=== PATIENT | female | born 1995 | race Caucasian/White ===

== ENCOUNTER 2019-01-10 18:44 | Emergency (ER) | payer SELFPAY ==
[2019-01-10 19:03] VITALS: BP 135/76; PULSE 95; RESP 20; TEMP 37.4; O2SAT 99; BMI 23.2
[2019-01-10 19:22] LABS: Bacteria Urine Few (2-10); Culture Indicated Urine Specimen Cultured; RBC Urine 30-100/HPF (0-5/HPF); Squamous Epithelial Cell Urine 0-1 /HPF (0-5/HPF); WBC Urine 30-100/HPF (0-5/HPF)
[2019-01-10] MEDS: cephALEXin 250 MG PREPACK 1 BOTTLE MISC (19:26)
--- NOTE | 2019-01-11 04:10 | ED_ITS ---
HPI - Female Genitourinary General Chief complaint: Urogenital-Female Stated complaint: thinks she has a kidney infection Time Seen by Provider: 01/10/19 18:48 Source: patient and family Mode of arrival: ambulatory Limitations: no limitations History of Present Illness HPI Narrative: 23F nonsmoker, otherwise healthy presents with her in the chief complaint of dysuria, frequency and urgency as well as bilateral flank pain for the past day or 2. She has had nausea denies any vomiting. She denies any fever but has had chills. She denies runny nose, sore throat, or cough. Related Data Previous Rx's Medication Instructions Recorded cephalexin [Keflex] 500 mg PO QID 10 Days #40 cap 01/10/19 ondansetron 4 mg PO TID-QID PRN #10 tab 01/10/19 Allergies Allergy/AdvReac Type Severity Reaction Status Date / Time No Known Drug Allergies Allergy Verified 01/10/19 19:01 Review of Systems Constitutional Denies chills, Denies fever(s), Denies lethargy and Denies weakness Eyes Denies change in vision, Denies eye discharge, Denies irritation and Denies loss of vision ENT Ears, Nose, Mouth, and Throat: Denies change in voice, Denies neck pain and Denies sore throat Cardiovascular Denies chest pain, Denies irregular heart rhythm, Denies lightheadedness, Denies palpitations, Denies dyspnea, Denies dyspnea on exertion and Denies orthopnea Respiratory Denies cough, Denies dyspnea, Denies dyspnea on exertion and Denies wheezing Gastrointestinal Gastrointestinal: Denies abdominal pain, Denies change in bowel habits, Denies diarrhea, Denies nausea and Denies vomiting Genitourinary Denies hematuria, Reports urinary frequency, Reports dysuria, Reports flank pain and Denies urinary incontinence Musculoskeletal Denies neck pain Integumentary/Breasts Denies pruritus, Denies erythema, Denies rash and Denies wounds Neurologic Denies confusion, Denies loss of vision and Denies weakness Psychiatric Denies anxiety, Denies confusion, Denies depression, Denies homicidal ideation and Denies suicidal ideation Endocrine Denies palpitations Hematologic/Lymphatic Denies easy bruising Allergic/Immunologic Denies wheezing PFSH Social History Smoking Status: Never smoker Social History Smoking Status: Never smoker Exam Narrative Exam Narrative: GENERAL: [23] year old patient appears stated age. Well- nourished, well-developed patient, in mild distress. HEAD: Atraumatic. Normocephalic. EYES: Pupils equal round and reactive. Extraocular motions intact. No scleral icterus. No injection or drainage. ENT: Nose without bleeding, purulent drainage. Throat without erythema, tonsillar hypertrophy or exudate. Airway patent. NECK: Trachea midline. Non tender CARDIOVASCULAR: Regular rate and rhythm without murmurs, gallops, or rubs. RESPIRATORY: Clear to auscultation. Breath sounds equal bilaterally. No wheezes, rales, or rhonchi. GASTROINTESTINAL: Abdomen soft, non-tender, nondistended. EXTREMITIES: No edema or joint tenderness. BACK: Nontender without deformity or crepitance. B/L flank tenderness to palp NEURO: AOx3. SKIN: No rash or erythema of visible areas Initial Vital Signs Initial Vital Signs: Vital Signs Temperature 99.3 F 01/10/19 19:03 Pulse Rate 95 H 01/10/19 19:03 Respiratory Rate 20 01/10/19 19:03 Blood Pressure 135/76 01/10/19 19:03 Pulse Oximetry 99 01/10/19 19:03 Course Orders Ordered: Discontinued Medications Cefazolin Sodium (Keflex 250 Mg Prepack) 1 bottle MISC SEEINSTR ONE Stop: 01/10/19 19:12 Last Admin: 01/10/19 19:26 Dose: 2 cap MDM - Female Genitourinary Lab Data Lab Results 01/10/19 Range/Units 19:06 Urine RBC 30-100/hpf H (0-5/HPF) Urine WBC 30-100/hpf H (0-5/HPF) Ur Squamous Epith Cells 0-1 /hpf (0-5/HPF) Urine Bacteria Few (2-10) H (None) Ur Culture Indicated? Specimen cultured Point of Care Testing Test Results Negative Urine Dip Bedside Urine Glucose Negative Bedside Urine Bilirubin - Negative Bedside Urine Ketone - Negative Urine Specific [place] 1.015 Bedside Urine Occult Blood +++ Bedside Urine pH 6.0 Bedside Urine Protein + 30 Bedside Urine Urobilinogen - Negative Bedside Urine Nitrite - Negative Bedside Urine Leukocytes +++ 500 Esterase Discharge Plan Departure Patient Disposition: Home Clinical Impression: Pyelonephritis Discharge Date/Time: 01/10/19 19:28 Interventions: ED Discharge Assessment Last Done: 01/10/19 19:28 Instructions: DI for Kidney Infection Activity Restrictions/Additional Instructions: *You have been diagnosed with [acute pyelonephritis] *What to do: *Take medications as directed *Follow up with your primary care provider in 2-3 days, call for an appointment. Let them know you were seen in the Emergency Department and that we ask that you be seen in follow up *Return to ER if you should have any new, worsening or concerning symptoms Prescriptions: New cephalexin [Keflex] 500 mg capsule 500 mg PO QID 10 Days Qty: 40 RF: 0 ondansetron 4 mg tablet,disintegrating 4 mg PO TID-QID PRN (Reason: nausea and vomiting) Qty: 10 RF: 0
== END 2019-01-10 19:28 | disposition home or self-care (01) ==
PROVIDERS: Emergency Provider Emergency Medicine
DX: N12 Tubulo-interstitial nephritis, not specified as acute or chronic (principal)
CPT/HCPCS: 81003; 81015; 81025; 87077; 87086; 87186; 99282; 99283